=== PATIENT | female | born 1980 | race Caucasian/White ===

== ENCOUNTER 2023-04-11 22:14 | Emergency (ER) | payer MEDICAID, SELFPAY ==
--- NOTE | ~2023-04-11 | XR_ITS ---
EXAMINATION: RIGHT WRIST, LEFT FEMUR CLINICAL INFORMATION: Fall with wrist and left leg pain COMPARISON: Left femur 09/01/2006 TECHNIQUE: 2 views left femur, 4 views right wrist FINDINGS: Left femur: No significant bone, joint or soft tissue abnormality is seen. Right wrist: No significant bone, joint or soft tissue abnormality is seen. XR/XR femur LT 2V IMPRESSION: No evidence of an acute traumatic osseous injury.
--- NOTE | ~2023-04-11 | XR_ITS ---
EXAMINATION: RIGHT WRIST, LEFT FEMUR CLINICAL INFORMATION: Fall with wrist and left leg pain COMPARISON: Left femur 09/01/2006 TECHNIQUE: 2 views left femur, 4 views right wrist FINDINGS: Left femur: No significant bone, joint or soft tissue abnormality is seen. Right wrist: No significant bone, joint or soft tissue abnormality is seen. XR/XR wrist RT 2V IMPRESSION: No evidence of an acute traumatic osseous injury.
[2023-04-11 22:21] VITALS: BP 130/85; PULSE 95; RESP 20; TEMP 37.1; O2SAT 99; BMI 31.9
--- NOTE | 2023-04-11 23:16 | ED_ITS ---
HPI - Fall General Chief Complaint: Fall Stated Complaint: LT foot pain, RT hand pain, injured at work Time Seen by Provider: 04/11/23 23:14 Source: patient Mode of arrival: ambulatory Limitations: no limitations History of Present Illness HPI Narrative: Patient is a 42-year-old female who presents emergency department for evaluation after mechanical slip and fall while at work resulting in pain to the left proxi mal lower extremity/knee and right wrist. She denies any head strike or loss of consciousness. Denies any numbness or tingling to the extremities. Was ambulatory after the event. Related Data Previous Rx's Medication Instructions Recorded tramadol 50 mg tablet 50 mg PO Q8H PRN pain #7 tabs 04/12/23 Allergies Allergy/AdvReac Type Severity Reaction Status Date / Time No Known Allergies Allergy Unverified 01/10/20 16:39 [No Known Allergies*] Review of Systems Review of Systems: Yes all other systems are reviewed and are negative [facility] Past Medical History Attestation statement: The following information was validated with the patient. Source: old records reviewed Social History Social History Advance Directives: No Advance Directives Information Provided: Yes Physical Exam Vital Signs: Vital Signs: Last Vital Signs Temp 97.4 F 04/12/23 00:17 Pulse 100 04/12/23 00:17 Resp 18 04/12/23 00:17 BP 106/68 04/12/23 00:17 Pulse Ox 97 04/12/23 00:17 O2 Del Method Room Air 04/12/23 00:17 BMI result Body Mass Index 31.9 Appearance: Alert.?Oriented to person, place and time. No acute distress.?Normal affect.? Neck: Normal inspection.? Neck supple.?? CVS: Heart sounds normal. Normal heart rate and rhythm.? Pulses normal.?? Respiratory: No respiratory distress.? Lung sounds clear to auscultation bilaterally?? Abdomen: Soft and non-tender. Normoactive bowel sounds. Skin: Skin warm and dry.? Normal skin color.? Extremities: No lower extremity edema.? No calf ttp. Full AROM to the right wrist and left lower extremity. 2+ DP/PT pulses bilaterally. 2+ radial pulse bilaterally. Neuro: Moves all extremities spontaneously. Sensation intact bilaterally. Ambulates with normal steady gait. Medical Decision Making Medical Decision Making MDM Narrative: Patient is a 42-year-old female who presents to the emergency department for evaluation after a mechanical slip and fall resulting in pain to the left lower extremity and right wrist. She has full AROM to both extremities. The extremities are neurovascularly intact distally. Clinically had low suspicion for any fracture dislocation, XR obtained which reveals no evidence of fracture dislocation. Discussed with patient symptoms most consistent with sprain at this time, advised rest, ice, Hermes bandage for compression, elevation of the extremity. Use of Tylenol for pain, she states she is unable to take NSAIDs due to a prior kidney injury secondary usage, patient provided with a short prescription for tramadol for further pain management. Provider with a return to work note. Discussed worrisome signs and symptoms are made re-evaluation emergency department. All questions answered. Stable for discharge. Differential Diagnosis Differential Diagnoses: The differential diagnosis associated with the presentation includes (Fracture, dislocation, sprain) Admission/Observation Consideration of admission/observation: Escalation of care including admission/observation considered (See narrative above) Independent Interpretation I performed an independent interpretation of an: Plain X-Ray (I personally interpreted XR imaging and agree with radiologist impression) Radiology Impression Discussion of test interpretation with radiology: I have reviewed the radiologist's reading. Radiologist Impression: XR/XR femur LT 2V IMPRESSION: No evidence of an acute traumatic osseous injury. XR/XR wrist RT 2V IMPRESSION: No evidence of an acute traumatic osseous injury. Independent Historian Clinical information obtained from an independent historian. History obtained from or confirmed by: Spouse External Record Review External record reviewed: Other ([facility] reviewed, no conflicts) Prescription Management I considered prescription management with: Pain Medication Discharge Plan Discharge Clinical Impression: Sprain of right wrist, Hamstring muscle strain Patient Disposition: Home, Self-Care Instructions: Hamstring Injury (ED), How to Use an Elastic Bandage (ED), R.I.C.E. Treatment (ED), Hamstring Exercises (ED) Additional Instructions: use hermes bandage to wrist as instructed. Be sure to rest, apply ice areas of pain protect 15 minutes 4 times daily. Elevate the arm and leg when possible above the level of the chest. You can take Tylenol 500 mg, 2 tablets (1,000mg) every 4-6 hours as needed for pain, but not to exceed 3 doses daily (3,000mg). For pain unrelieved by Tylenol you may take tramadol. This medication may make you drowsy, should not drive, drink alcohol, or work while taking this medicat ion. Follow-up with your primary care provider. You may return back to emergency department any new or worsening symptoms or concerns. ? Prescriptions: New tramadol 50 mg tablet 50 mg PO Q8H PRN (Reason: pain) Qty: 7 0RF Referrals: Physician,Unknown J [Primary Care Provider] - Stand Alone Forms: Work/School Release Interventions: ED Discharge Assessment Last Done: 04/12/23 01:34 Discharge Date/Time: 04/12/23 01:34
[2023-04-12 00:17] VITALS: BP 106/68; PULSE 100; RESP 18; TEMP 36.3; O2SAT 97
== END 2023-04-12 01:34 | disposition home or self-care (01) ==
PROVIDERS: Emergency Provider Internal Medicine
DX: S63.501A Unspecified sprain of right wrist, initial encounter (principal); W01.0XXA Fall on same level from slipping, tripping and stumbling without subsequent striking against object, initial encounter; Y93.9 Activity, unspecified; Y92.9 Unspecified place or not applicable; Y99.0 Civilian activity done for income or pay
CPT/HCPCS: 73100; 73552; 99283

== ENCOUNTER 2024-08-05 05:57 | Emergency (ER) | payer MEDICAID, SELFPAY ==
--- NOTE | ~2024-08-05 | XR_ITS ---
CLINICAL HISTORY: fall, pain Exam: AP, lateral, and spot lateral views of the lumbar spine. Comparison: None. Findings: Bony alignment is anatomic. No acute fractures. Disc space heights are well preserved. Mild facet joint degenerative change at L4-5 and L5-S1. Mild bilateral sacroiliac joint DJD. Impression: Degenerative changes as above without acute fracture. This document has been electronically signed by: Gregg Dallas MD on 08/05/2024 07:43:32
--- NOTE | ~2024-08-05 | XR_ITS ---
CLINICAL HISTORY: fall, pain, prior surgery Exam: AP, lateral, and oblique views of the right knee. Comparison: None. Findings: Patient has undergone prior anterior cruciate ligament reconstruction. Bony alignment is anatomic. No fracture or joint effusion. Minor degenerative change in all 3 compartments. Impression: No acute finding. This document has been electronically signed by: Gregg Dallas MD on 08/05/2024 07:53:25
--- NOTE | ~2024-08-05 | XR_ITS ---
CLINICAL HISTORY: fall, lateral malleolar pain Exam: AP, lateral, and mortise views of the left ankle. Comparison: None. Findings: Bony alignment is anatomic. No acute fracture. Joint spaces are well preserved. Ankle mortise is intact. Impression: No fracture. This document has been electronically signed by: Gregg Dallas MD on 08/05/2024 07:54:22
[2024-08-05 06:00] VITALS: BP 129/87; PULSE 80; RESP 18; TEMP 36.7; O2SAT 98; BMI 32.0
--- NOTE | 2024-08-05 06:24 | PC.NURSE ---
Pt a&ox4, no signs of distress. Pt reports she slipped and fell and landed on her left ankle and right knee Pt denies head strike and loc Plan of care ongoing.
--- NOTE | 2024-08-05 06:47 | ED.GENADULT ---
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 She says that yesterday evening she was at a store and slipped on a wet floor. She fell backwards and landed primarily on her left side. She did not hit her head. In falling she feels that she twisted her left ankle and also landed on her left wrist and left buttock. She also has a history of meniscus surgery on her right knee and she feels that she twisted her knee in the fall as well. She says that she was able to get herself up off the floor and was able to get herself home. 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 At the end of her shift she felt that she was having worsening pain and was having trouble walking and so came to the emergency room for evaluation. She has pain primarily in her left ankle and in the region of her left lower back and also in her right knee. She also has some pain in her left wrist. She did not hit her head. She has no neck pain. No chest or abdominal pain. Related Data Previous Rx's ?Medication ?Instructions ?Recorded tramadol 50 mg tablet 50 mg PO Q8H PRN pain #7 tabs 04/12/23 acetaminophen 500 mg capsule 1,000 mg (2 x 500 mg) PO Q8H PRN 08/05/24 fever or pain #14 caps Allergies Allergy/AdvReac Type Severity Reaction Status Date / Time No Known Allergies Allergy Verified 08/05/24 06:06 [No Known Allergies*] Review of Systems Review of Systems: Yes all other systems are reviewed and are negative Physical Exam ED Vital Signs: Vital Signs - 24 hr 08/05/24 06:00 08/05/24 09:20 Temperature 98.0 F 98.0 F Pulse Rate 80 80 Respiratory Rate 18 18 Blood Pressure 129/87 129/87 Pulse Oximetry 98 98 Oxygen Delivery Method Room Air Room Air BMI result Body Mass Index 32.0 Const Other: The patient is awake and alert and does not appear obviously injured or in distress. HENMT Other: No signs of injury to the head or the face. Eyes General: appearance normal, both eyes and all related structures Neck Other: No posterior C-spine tenderness. No pain with range of motion of the neck. C-spine is clinically clear. Resp Effort & Inspection: normal respiratory effort Auscultation: clear to auscultation bilaterally Cardio Rate: regular rate Rhythm: regular rhythm Heart sounds: S1 normal heart sound present and S2 normal heart sound present GI Other: Abdomen is soft and nontender Back/Spine/Pelvis Other: The patient has tenderness in the region of the left lower back near the posterior superior iliac spine. Some minimal midline lumbar tenderness. Skin Other: Skin is intact. Possibly some mild soft tissue swelling in the region of the left lateral malleolus Neuro Other: The patient is awake and alert with a normal mental status. Cranial nerves are intact. She has intact strength and sensation in her extremities. Extrem Other: The patient has some tenderness on the lateral aspect of the left wrist but there was no soft tissue swelling and she seems to be able to put the rest through a good range of motion without apparent discomfort. There is some mild soft tissue swelling in the region of the left lateral malleolus. She is able to move the left ankle fairly well. There is no deformity. The patient has some tenderness to the left knee generally. There is some generalized tenderness. No deformity. She can put the knee through a reasonably good range of motion. Medications Administered Discontinued Medications Generic Name Dose Route Start Last Admin Trade Name Freq PRN Reason Stop Dose Admin Ketorolac Tromethamine 30 mg 08/05/24 07:02 08/05/24 07:32 Ketorolac Tromethamine 30 Mg/Ml Vial IM 08/05/24 07:03 30 mg ONCE ONE Administration Medical Decision Making Medical Decision Making [facility] Narrative: The patient is a 44-year-old woman with a history of type 2 diabetes and hypertension who presents for evaluation of injuries about 12 hours after a fall yesterday evening. She is complaining of pain in her left ankle, her left lower back, her left wrist, and her right knee. The areas of maximum pain seemed to be the left ankle and a left lower back. My suspicion for a fracture is not very high but we will get x-rays of her left ankle, right knee, and lower back. She will be given an injection of ketorolac. The patient's x-rays were unremarkable. There is no evidence of a fracture. She will be given crutches to keep weight off the left ankle. She will be given a work note for 2 days off work. My hope is that she will feel somewhat better. Ibuprofen and acetaminophen as needed for discomfort. Follow-up with PCP. Return to the emergency room if worse. Discharge Plan Discharge Clinical Impression: Left ankle sprain, Low back strain, Strain of right knee, Contusion of left wrist Patient Disposition: Home, Self-Care Additional Instructions: Your x-rays show no fractures. I think you have soft tissue injuries that should get better with the time and rest. Therefore please rest today and tomorrow. Use acetaminophen as needed for pain. I have sent a prescription for acetaminophen to your pharmacy. If you have crutches you may use the crutches to keep weight off your left ankle. My hope is that you will be feeling sufficiently better by Tuesday to return to work. Please follow up with your regular doctor's office if not improving. Return to the emergency room if significantly worse. Prescriptions: New acetaminophen 500 mg capsule 1,000 mg PO Q8H PRN (Reason: fever or pain) Qty: 14 0RF No Action tramadol 50 mg tablet 50 mg PO Q8H PRN (Reason: pain) Qty: 7 0RF Referrals: Ced Easley PA-C [Primary Care Provider] - (Multiple strains) Stand Alone Forms: Work/School Release Interventions: ED Discharge Assessment Last Done: 08/05/24 09:20 Discharge Date/Time: 08/05/24 09:22 Print Language: Tristanian
[2024-08-05] MEDS: Ketorolac Tromethamine 30 MG/ML VIAL IM (07:32)
[2024-08-05 09:20] VITALS: BP 129/87; PULSE 80; RESP 18; TEMP 36.7; O2SAT 98
== END 2024-08-05 09:22 | disposition home or self-care (01) ==
PROVIDERS: Emergency Provider Emergency Medicine; PCP Physician Assistant Medical
DX: S93.402A Sprain of unspecified ligament of left ankle, initial encounter (principal); S86.912A Strain of unspecified muscle(s) and tendon(s) at lower leg level, left leg, initial encounter; S83.91XA Sprain of unspecified site of right knee, initial encounter; S60.212A Contusion of left wrist, initial encounter; W19.XXXA Unspecified fall, initial encounter; Y93.9 Activity, unspecified; Y92.9 Unspecified place or not applicable; Y99.9 Unspecified external cause status
CPT/HCPCS: 72100; 73564; 73610; 96372; 99284; J1885

== ENCOUNTER → 2024-08-05 07:02 | Outpatient (BNV) | payer MEDICAID, SELFPAY | PROVIDERS: Emergency Provider Emergency Medicine; PCP Physician Assistant Medical; Visit Provider Radiology Diagnostic Radiology | DX: M25.561 Pain in right knee (principal); M54.50 Low back pain, unspecified; S82.62XA Displaced fracture of lateral malleolus of left fibula, initial encounter for closed fracture | CPT/HCPCS: 72100; 73564; 73610 ==